=== PATIENT | male | born 1990 | race African-American/Black ===

== ENCOUNTER → 2017-02-21 | Day surgery (SDC) | payer BC, OTHER ==
[~2017-02-21] VITALS: Ht 180.3 cm; Wt 88.4 kg
[~2017-02-21] MED LIST: ACETAMINOPHEN 1000 MG/100 ML VIAL IV ONE; BACITRACIN TOP OINT 15 GM TUBE ONE; BUPIVACAINE HCL PF 0.5% 30 ML VIAL ONE; CEPH-460 PO; CHLORHEXIDINE GLUCONATE 2 % 1 PACK (2 CLOTHS) TOPICAL PRN; DO NOT ADM ANY ANTICOAGULANT DRUGS PRN; HYDROmorphone HCL PF 1 MG/ML VIAL IV PRN; HYDROmorphone HCL PF 2 MG/ML VIAL ONE; INSULIN HUMAN REGULAR 1,000 UNITS/10 ML VIAL SQ PRN; LACTATED RINGER'S 1000 ML INJ 1,000 ML IV ONE; LACTATED RINGER'S 1000 ML INJ 1,000 ML IV SCH; LACTATED RINGER'S 1000 ML IV PRN; LIDOCAINE HCL 2% 50 ML VIAL ONE; METOPROLOL TARTRATE 25 MG TAB PO PRN; MIDAZOLAM HCL 2 MG/2 ML VIAL ONE; MINERAL OIL 10 ML VIAL ONE; NEOMYCIN/POLYMYXIN 1 ML G.U. IRRIGANT TOPICAL ONE; NORMOSOL R INJ 1,000 ML IV ONE; ONDANSETRON HCL 4 MG/2 ML VIAL IV PUSH ONE; ONDANSETRON HCL 4 MG/2 ML VIAL IV PUSH PRN; POVIDONE IODINE 5% (ANTISEPSIS KIT) 4 APPLICATIONS EACH NARE PRN; PROPOFOL 200 MG/20 ML AMP IV ONE; SODIUM CHLORID 0.9% 500 ML IV PRN; ceFAZolin 2 GM PREMIX 50 ML IV SCH; ceFAZolin INJ 1,000 MG VIAL IV ONE; fentaNYL CITRATE 250 MCG/5 ML AMP ONE
[2017-02-21 06:40] VITALS: BP 136/75; PULSE 82; RESP 20; TEMP 98.8; O2SAT 100
--- NOTE | 2017-02-21 14:59 | RADRPT ---
EXAM DATE/TIME: 02/21/2017 14:15 [place] COMPARISON: No previous studies available for comparison. INDICATIONS : Evaluate for foreign body, abnormal instrument count. Evaluate for possible retained needle.. MEDICAL HISTORY : None. SURGICAL HISTORY : None. ENCOUNTER: Initial ACUITY: 1 day PAIN SCORE: Non-responsive. LOCATION: Right hand FINDINGS: A limited single AP view of the right hand was obtained. The fingers are flexed in part. There is no evidence of retained needle. CONCLUSION: Negative limited single view study with no evidence of retained needle. Noah Benson MD on February 21, 2017 at 14:55 Board Certified Radiologist. This report was verified electronically.
[2017-02-21 17:50] VITALS: BP 161/97; PULSE 78; RESP 18; TEMP 97.7; O2SAT 99
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
== END | disposition home or self-care (01) ==
LOC: HSDC 06:13
PROVIDERS: ATTEND Orthopaedic Surgery
DX: S66.122A Laceration of flexor muscle, fascia and tendon of right middle finger at wrist and hand level, initial encounter (principal); S66.124A Laceration of flexor muscle, fascia and tendon of right ring finger at wrist and hand level, initial encounter; S66.126A Laceration of flexor muscle, fascia and tendon of right little finger at wrist and hand level, initial encounter; S64.01XA Injury of ulnar nerve at wrist and hand level of right arm, initial encounter; W26.0XXA Contact with knife, initial encounter
CPT/HCPCS: 01810; 26356; 26455; 64910; 73120; C9352; J0131; J0690; J1170; J2250; J2405; J3010; J7120